=== PATIENT | male | born 1985 | race Caucasian/White ===

== ENCOUNTER 2017-12-06 20:44 | Emergency (ER) | payer SELFPAY ==
[~2017-12-06] VITALS: Ht 170.2 cm; Wt 68.0 kg
--- NOTE | 2017-12-06 21:57 | Diagnostic Imaging Report ---
EXAMINATION: CHEST SINGLE (PORTABLE) INDICATION: Chest pain COMPARISON: None FINDINGS: TUBES and LINES: None. LUNGS: Lungs are well inflated. Linear hyperdensity at the most medial aspect of the right apex is nonspecific and may represent an area of scarring versus overlying artifact There is no evidence of pneumonia or pulmonary edema. PLEURA: No pleural effusion or pneumothorax. HEART AND MEDIASTINUM: The cardiomediastinal silhouette is unremarkable. BONES AND SOFT TISSUES: No acute osseous lesion. Soft tissues are unremarkable. UPPER ABDOMEN: No free air under the diaphragm. IMPRESSION: No acute thoracic abnormality. Signed by: Dr. Azeem Leigh M.D. on 12/06/2017 9:53 PM
--- OUTSIDE RECORDS SUMMARY | 2017-12-17 11:13 | XMS REPORT | Clinical Summary ---
Author Author [facility] Address Unknown Phone Unavailable Care Team Providers Care Health Policy Nurse Name Role Phone Mike Rodriges MD PCP Allergies No Known Allergies Current Medications Prescription Sig. Disp. Refills Start End Date Status Date diazePAM (VALIUM) 5 MG Take 1 tablet (5 mg 14 tablet 0 03/29/19 04/05/19 tablet total) by mouth 2 (two) 18 18 times a day for 7 days. traMADol (ULTRAM) 50 mg Take 1 tablet (50 mg 12 tablet 0 03/29/19 04/03/19 tablet total) by mouth every 6 18 18 (six) hours as needed for moderate pain for up to 5 days. Active Problems Not on file Encounters Date Type Specialty Care Team Description 03/29/2017 Emergency Emergency Medicine MustafaEvens eller MD Anxiety (Primary Dx); Atypical chest pain after 12/05/2016 Social History Tobacco Use Types Packs/Day Years Used Date Former Smoker Smokeless Tobacco: Never Used Alcohol Use Drinks/Week oz/Week Comments No Sex Assigned at Date Recorded Not on file Last Filed Vital Signs Vital Sign Reading Time Taken Blood Pressure 115/74 03/29/2017 1:25 PM [facility] Pulse 68 03/29/2017 1:25 PM [employer] Temperature 36.4 C (97.5 F) 03/29/2017 1:25 PM [employer] Respiratory Rate 16 03/29/2017 1:25 PM [employer] Oxygen Saturation 97% 03/29/2017 12:14 PM [employer] Inhaled Oxygen - - Concentration Weight 74.8 kg (165 lb) 03/29/2017 11:00 AM [employer] Height 154.9 cm (5' 1") 03/29/2017 12:14 PM [employer] Body Mass Index 31.18 03/29/2017 11:00 AM [employer] Plan of Treatment Health Maintenance Due Date Last Done Comments INFLUENZA VACCINE 10/02/2017 Procedures Procedure Name Priority Date/Time Associated Diagnosis Comments ZZESTIMATED GFR STAT 03/29/2017 Results for this 11:50 AM [employer] procedure are in the results section. B NATRIURETIC PEPTIDE STAT 03/29/2017 Results for this 11:50 AM [employer] procedure are in the results section. TROPONIN STAT 03/29/2017 Results for this 11:50 AM [employer] procedure are in the results section. COMPREHENSIVE METABOLIC STAT 03/29/2017 Results for this PANEL 11:50 AM [employer] procedure are in the results section. HC COMPLETE BLD COUNT STAT 03/29/2017 Results for this W/AUTO DIFF 11:50 AM [employer] procedure are in the results section. XR CHEST 1 VW PORTABLE STAT 03/29/2017 Results for this 11:37 AM [employer] procedure are in the results section. ECG 12-LEAD STAT 03/29/2017 Results for this 11:15 AM [employer] procedure are in the results section. after 12/05/2016 Results * Estimated GFR (03/29/2017 11:50 AM) GFR Non Af Amer >90 mL/min/1.73 m2 [facility] AND GENOMIC MEDICINE GFR Af Amer >90 mL/min/1.73 m2 [facility] Comment: PATHOLOGY AND Chronic kidney disease: <60 GENOMIC MEDICINE mL/min/1.73m2 Kidney failure: <15 mL/min/1.73m2 The estimated GFR is calculated from the IDMS-traceable Modification of Diet in Renal Disease Equation. The accuracy of the calculation is poor when the creatinine is normal. Calculated values >90 mL/min/1.73m2 are not reported. This equation has not been validated in children (<18 years), women, the elderly (>70 years), or ethnic groups other than Caucasians and Americans. Specimen Plasma specimen Performing Organization Address City/State/Zipcode Phone Number [facility] OF [address] [place] [address] PATHOLOGY AND GENOMIC MEDICINE * Troponin (03/29/2017 11:50 AM) Troponin <0.01 0.00 - 0.60 ng/mL [facility] OF Comment: PATHOLOGY AND 0.11 - 1.49 GENOMIC MEDICINE ng/mlMay indicate increased risk of acute coronary syndrome. >=1.5 ng/ml Consistent with acute myocardial infarction. The diagnostic value of a single normal or non-diagnostic result is questionable.Serial samples at 2-6 hour intervals are required to rule out acute myocardial injury. Specimen Plasma specimen Performing Organization Address City/State/Zipcode Phone Number [facility] [address] [place] [address] PATHOLOGY AND GENOMIC MEDICINE * CBC with platelet and differential (03/29/2017 11:50 AM) WBC 8.9 4.2 - 11.0 k/uL [facility] PATHOLOGY AND GENOMIC MEDICINE RBC 4.78 4.04 - 5.86 m/uL [facility] PATHOLOGY AND GENOMIC MEDICINE HGB 14.7 13.0 - 17.3 g/dL [facility] OF PATHOLOGY AND GENOMIC MEDICINE HCT 41.7 34.0 - 45.0 % [facility] PATHOLOGY AND GENOMIC MEDICINE MCV 87.2 80.0 - 98.0 fL [facility] PATHOLOGY AND GENOMIC MEDICINE MCH 30.8 27.0 - 34.0 pg [facility] PATHOLOGY AND GENOMIC MEDICINE MCHC 35.3 31.5 - 36.5 g/dL [facility] OF PATHOLOGY AND GENOMIC MEDICINE RDW - SD 37.5 37.0 - 51.0 fL [facility] PATHOLOGY AND GENOMIC MEDICINE MPV 10.3 7.4 - 10.4 fL [facility] PATHOLOGY AND GENOMIC MEDICINE Platelet count 213 150 - 400 k/uL [facility] PATHOLOGY AND GENOMIC MEDICINE Nucleated RBC 0.00 /100 WBC [facility] OF PATHOLOGY AND GENOMIC MEDICINE Neutrophils 76.6 (H) 36.0 - 66.0 % [facility] OF PATHOLOGY AND GENOMIC MEDICINE Lymphocytes 17.5 (L) 24.0 - 44.0 % [facility] OF PATHOLOGY AND GENOMIC MEDICINE Monocytes 4.6 0.0 - 6.0 % [facility] OF PATHOLOGY AND GENOMIC MEDICINE Eosinophils 0.7 0.0 - 6.0 % [facility] OF PATHOLOGY AND GENOMIC MEDICINE Basophils 0.4 0.0 - 1.2 % [facility] OF PATHOLOGY AND GENOMIC MEDICINE Immature granulocytes 0.2 0.0 - 1.0 % [facility] OF PATHOLOGY AND GENOMIC MEDICINE Specimen Blood Performing Organization Address City/State/Zipcode Phone Number [facility] [address] [place] [address] PATHOLOGY AND GENOMIC MEDICINE * B natriuretic peptide (03/29/2017 11:50 AM) BNP <5 0 - 100 pg/mL [facility] OF PATHOLOGY AND GENOMIC MEDICINE Specimen Blood Performing Organization Address City/[facility]/Zipcode Phone Number [place] [phone] [place] [address] PATHOLOGY AND GENOMIC MEDICINE * Comprehensive metabolic panel (03/29/2017 11:50 AM) Sodium 137 135 - 150 mEq/L [facility] OF PATHOLOGY AND GENOMIC MEDICINE Potassium 3.8 3.5 - 5.0 mEq/L [facility] OF PATHOLOGY AND GENOMIC MEDICINE Chloride 103 100 - 109 mEq/L [facility]OLOGY AND GENOMIC MEDICINE CO2 27 24 - 32 mmol/L [facility] OF PATHOLOGY AND GENOMIC MEDICINE Anion gap 7 7 - 15 mEq/L [facility] Comment: PATHOLOGY AND Starting from June [employer] MEDICINE , anion gap calculation no longer incorporates potassium. Please note the change. BUN 18 7 - 18 mg/dL [facility] PATHOLOGY AND GENOMIC MEDICINE Creatinine 0.9 0.8 - 1.5 mg/dL [facility] OF PATHOLOGY AND GENOMIC MEDICINE Glucose 108 (H) 65 - 100 mg/dL [facility] OF PATHOLOGY AND GENOMIC MEDICINE Calcium 9.0 8.6 - 10.7 mg/dL [facility] OF PATHOLOGY AND GENOMIC MEDICINE Protein 7.6 6.3 - 8.2 g/dL [facility] OF PATHOLOGY AND GENOMIC MEDICINE Albumin 3.9 3.2 - 5.0 g/dL [facility] OF PATHOLOGY AND GENOMIC MEDICINE A/G ratio 1.1 0.7 - 3.8 [facility] PATHOLOGY AND GENOMIC MEDICINE Alkaline phosphatase 88 30 - 120 U/L [facility] OF PATHOLOGY AND GENOMIC MEDICINE AST 5 (L) 15 - 37 U/L [facility] PATHOLOGY AND GENOMIC MEDICINE ALT 25 (L) 30 - 65 U/L [facility] OF PATHOLOGY AND GENOMIC MEDICINE Total bilirubin 0.6 0.2 - 1.2 mg/dL [facility] OF PATHOLOGY AND GENOMIC MEDICINE Specimen Plasma specimen Performing Organization Address City/State/Zipcode Phone Number [facility] [place] [address] PATHOLOGY AND [employer] MEDICINE * XR Chest 1 Vw Portable (03/29/2017 11:37 AM) Narrative Performed At EXAMINATION:XR CHEST 1 VW PORTABLE RADIANT CLINICAL HISTORY: SHORTNESS OF BREATH COMPARISON:None. FINDINGS: One view of the chest demonstratesnormal cardiomediastinal silhouette. Pulmonary vasculature is within normal limits. Both lungs are clear. No pleural disease is identified. Regional osseous structures is unremarkable. IMPRESSION: No radiographic evidence of acute cardiopulmonary process or active disease of the chest. [facility] [id number] Procedure Note Hm Interface, Radiology Results Incoming - 03/29/2017 11:44 AM [employer] EXAMINATION: XR CHEST 1 VW PORTABLE CLINICAL HISTORY: SHORTNESS OF BREATH COMPARISON: None. FINDINGS: One view of the chest demonstrates normal cardiomediastinal silhouette. Pulmonary vasculature is within normal limits. Both lungs are clear. No pleural disease is identified. Regional osseous structures is unremarkable. IMPRESSION: No radiographic evidence of acute cardiopulmonary process or active disease of the chest. [facility] [id number] Performing Organization Address [facility] Phone Number [facility] [address] [place] [address] * ECG 12 lead (03/29/2017 11:15 AM) Ventricular rate 64 [facility] Atrial rate 64 [facility] OR interval 116 [facility] QRSD interval 96 [facility] QT interval 416 [facility] QTC interval 429 [facility] P axis 1 24 [facility] QRS axis 1 76 [facility] T wave axis 48 [facility] EKG impression Normal sinus rhythm-Normal [facility] MUSE ECG-No previous ECGs available- Performing Organization Address [facility] Phone Number [facility] [address] [place] [address] after 12/05/2016
== END 2017-12-06 21:54 | disposition home or self-care (01) ==
LOC: ER 20:44
DX: R07.89 Other chest pain (principal); I10 Essential (primary) hypertension
CPT/HCPCS: 71045; 93005; 99283

== ENCOUNTER 2018-12-29 23:03 | Inpatient (IN) | payer OTHER ==
[~2018-12-29] VITALS: Ht 170.2 cm; Wt 68.0 kg
--- OUTSIDE RECORDS SUMMARY | 2018-12-29 23:05 | XMS REPORT ---
Author Author [facility] Address Unknown Phone Unavailable Care Team Providers Care Genetic Counsellor Name Role Phone MAURI Kelsey ABELARDO Unavailable Unavailable Payers Payer Name Policy Type Policy Number Effective Date Expiration Date Problems This patient has no known problems. Allergies, Adverse Reactions, Alerts Allergy Name Allergy Type Status Severity Reaction(s) Onset Date Inactive Date Treating Clinician Comments No Known Allergies DA Active U 2016-09-02 00:00:00 Medications This patient has no known medications. Results Test Description Test Time Test Comments Text Results Atomic Results Result Comments - CT CHEST W/O CONTRAST 2018-07-24 09:29:00 Name: GONZALO YATES [facility] : 1985 Age/S: 32 / M [address] [facility] Unit [facility]: [id number] Loc: [place] [address] Phys: Checo Connolly MD Acct: [id number] Dis Date: Status: REG CLI PHONE #: [phone] Exam Date: 07/24/2018 0859 FAX #: [phone] Reason: PAIN EXAMS: CPT CODE: [id number] CT CHEST W/O CONTRAST [address] TECHNIQUE: - CT CHEST W/O CONTRAST . This exam was performed using one or more of the following dose reduction techniques: Automated exposure control, adjustment of the mA and/ or kV according to patient size or use of iterative reconstruction technique. COMPARISON: CT chest 09/02/2018 HISTORY: 32 years Male PAIN FINDINGS: Lungs: Coarse parenchymal disease with surgical changes medial right upper lung field. These findings are of marked decreased prominence since the previous CT scan 09/02/2016. Mediastinum and Rocio: No significant lymphadenopathy. No mediastinal or hilar mass. Pleura: No calcifications, effusion, thickening, or pneumothorax. Cardiovascular: Age appropriate. No significant abnormalities. Visualized Upper Abdomen: No significant findings. Chest wall and bony structures: No abnormalities. IMPRESSION: Coarse parenchymal disease with surgical changes medial right upper lung field. These findings are of marked decreased prominence since the previous CT scan 09/02/2016. at 0929 Reported and signed by: Pola Jarrell M.D. PAGE 1 Signed Report (CONTINUED) Name: GONZALO YATES [facility] : 1985 Age/S: 32 / M [address] [facility] Unit #: [id number] Loc: [place] [address] Phys: Checo Connolly MD Acct: [id number] Dis Date: Status: REG CLI PHONE #: [phone] Exam Date: 07/24/2018 0859 FAX #: [phone] Reason: PAIN EXAMS: CPT CODE: [id number] CT CHEST W/O CONTRAST [address]35[address] <Continued> CC: Mike Rodriges; Checo Connolly MD Technologist:Dwain Silveira RT(R),(MR),(CT) CTDI: DLP: Trnscb Date/Time: 07/24/2018 (928) [email or web address] Orig Print D/T: S: 07/24/2018 (0932) PAGE 2 Signed Report CHEST SINGLE (PORTABLE) 2017-12-06 21:52:00 [facility] [address] [place] [address] Patient Name: GONZALO YATES MR #: [id number] : 1985 Age/Sex: 32/M Req #: [id number] Adm Physician: Ordered by: ABELARDO DOTSON MD Report #: [id number] Location: ER Room/Bed: Procedure: [id number] DX/CHEST SINGLE (PORTABLE) Exam Date: 12/06/17 Exam Time: 2114 REPORT STATUS: Signed EXAMINATION: CHEST SINGLE (PORTABLE) INDICATION: Chest pain COMPARISON: None FINDINGS: TUBES and LINES: None. LUNGS: Lungs are well inflated. Linear hyperdensity at the most medial aspect of the right apex is nonspecific and may represent an area of scarring versus overlying artifact There is no evidence of pneumonia or pulmonary edema. PLEURA: No pleural effusion or pneumothorax. HEART AND MEDIASTINUM: The cardiomediastinal silhouette is unremarkable. BONES AND SOFT TISSUES: No acute osseous lesion. Soft tissues are unremarkable. UPPER ABDOMEN: No free air under the diaphragm. IMPRESSION: No acute thoracic abnormality. Signed by: Dr. Azeem Leigh M.D. on 12/06/2017 9:53 PM Dictated By: AZEEM JENNINGS MD 52 Transcribed By: IZABELA on 12/06/172152 COPY TO: ABELARDO DOTSON MD
[2018-12-29] MEDS ORDERED: ONDANSETRON HCL INJ 2MG/ML 2ML 2 MG/ML VIAL IV STA (23:55)
[2018-12-30] MEDS ORDERED: DICYCLOMINE HCL 20 MG/2 ML VIAL IM ONE
[2018-12-30] MEDS ORDERED: MORPHINE SULFATE INJ 4 MG/ML INJ 1ML IV ONE
[2018-12-30 00:09] LABS: BASOPHILS # (AUTO) 0.1 (0.0-0.1); BASOPHILS % 0.7 % (0.0-1.0); EOSINOPHILS # (AUTO) 0.2 (0.0-0.4); HEMATOCRIT 41.5 % (38.2-49.6); HEMOGLOBIN 14.4 g/dL (14.0-18.0); LYMPHOCYTES # (AUTO) 2.8 (1.0-3.2); LYMPHOCYTES % 31.5 % (18.0-39.1); MEAN CORPUSCULAR HEMOGLOBIN 31.6 pg (28-32); MEAN CORPUSCULAR HGB CONC 34.7 g/dL (31-35); MONOCYTES # (AUTO) 0.5 (0.2-0.8); MONOCYTES % 5.9 % (4.4-11.3); NEUTROPHILS # (AUTO) 5.3 (2.1-6.9); NEUTROPHILS % 59.7 % (38.7-80.0); PLATELET COUNT 164 x10e3/uL (140-360); RED BLOOD COUNT 4.56 x10e6/uL (4.3-5.7); RED CELL DISTRIBUTION WIDTH 11.8 % (11.7-14.4)
[2018-12-30 00:29] LABS: ALANINE AMINOTRANSFERASE 31 IU/L (0-55); ALBUMIN 3.8 g/dL (3.5-5.0); ALBUMIN/GLOBULIN RATIO 1.4 (0.8-2.0); ALKALINE PHOSPHATASE 69 IU/L (40-150); ANION GAP 13.7 mmol/L (8-16); BLOOD UREA NITROGEN 18 mg/dL (7-26); BUN/CREATININE RATIO 21 (6-25); CALCIUM 9.5 mg/dL (8.4-10.2); CARBON DIOXIDE 24 mmol/L (22-29); CHLORIDE 105 mmol/L (98-107); CREATININE, SERUM 0.84 mg/dL (0.72-1.25); EST GLOMERULAR FILTRATION RATE > 60 ML/MIN (60-); GLUCOSE 132 mg/dL (74-118); POTASSIUM 3.7 mmol/L (3.5-5.1); SODIUM 139 mmol/L (136-145)
[2018-12-30 00:32] LABS: BILIRUBIN,URINE NEGATIVE (NEGATIVE); CLARITY,URINE CLEAR (CLEAR); COLOR,URINE YELLOW (YELLOW); KETONES,URINE NEGATIVE (NEGATIVE); LEUKOCYTE ESTERASE ,URINE NEGATIVE (NEGATIVE); NITRITE,URINE NEGATIVE (NEGATIVE); PROTEIN,URINE DIPSTICK NEGATIVE (NEGATIVE); URINE UROBILINOGEN 0.2 mg/dL (0.2 - 1)
[2018-12-30 01:07] LABS: BACTERIA,URINE RARE /HPF; EPITHELIAL CELLS,URINE FEW /LPF; RBC,URINE 0-5 /HPF (0-5); WBC,URINE (MAN) 0-5 /HPF (0-5)
[2018-12-30 01:13] LABS: AMYLASE 153 U/L (25-125); LIPASE 362 U/L (8-78)
--- NOTE | 2018-12-30 01:26 | Diagnostic Imaging Report ---
EXAM: Right Upper Quadrant Ultrasound with Doppler INDICATION: Right upper quadrant pain COMPARISON: None. TECHNIQUE: Transverse and longitudinal images of the right upper abdomen were obtained. Grayscale, color Doppler and spectral waveform analysis of the hepatic vasculature and splenic vein were performed. FINDINGS: Liver: Size: 15.3 cm in the right midclavicular line, normal Appearance: Normal echogenicity, smooth contour Mass: No focal masses Gallbladder: Stones/Sludge: None Wall: 0.2 cm Appearance: No pericholecystic fluid or hydrops. Sonographic Jones's Sign: Negative Bile Ducts: Intrahepatic Ducts: No dilatation Extrahepatic Ducts: Common bile duct measures 0.3 cm, no dilatation Pancreas: Obscured by bowel gas. Right Kidney: Size: 9.7 cm Echogenicity: Normal Parenchymal thickness: Normal Collecting system: No hydronephrosis Stones: None Cyst/Mass: None Vessels: Main Portal Vein: Diameter: 1.1 cm, normal. Normal flow direction. Aorta: Visualized portions are normal Inferior Vena Cava: Visualized portions are normal Free Fluid: No ascites or pleural effusion IMPRESSION: Normal right upper quadrant ultrasound . Signed by: Jose De Jesus Cody DO on 12/30/2018 1:23 AM
[2018-12-30] MEDS: SODIUM CHLORIDE 0.9% 1000ML 1,000 ML IV SCH ×4 (02:17→20:21)
[2018-12-30] MEDS ORDERED: SODIUM CHLORIDE 0.9% 1000ML 1,000 ML IV STA (04:06)
[2018-12-30] MEDS ORDERED: SODIUM CHLORIDE 0.9% 1000ML 1,000 ML IV ONE (04:15)
[2018-12-30] MEDS: ONDANSETRON HCL INJ 2MG/ML 2ML 2 MG/ML VIAL IV PRN ×5 (04:40→22:09)
[2018-12-30] MEDS: HYDROMORPHONE 1MG/1ML INJ IV PRN ×5 (04:40→22:09)
[2018-12-30] MEDS ORDERED: DIAZEPAM5 MG PO (04:55)
[2018-12-30] MEDS ORDERED: BYSTOLIC10 MG PO (04:55)
[2018-12-30] MEDS ORDERED: HYDROCODONE-IB1 EAC1 PO (04:55)
--- NOTE | 2018-12-30 06:55 | NUR ---
Bedside report received from ANJANA Oden. Pt sitting up on stretcher. RR even and unlabored. NAD noted. Vitals stable. Will continue to monitor.
[2018-12-30 08:16] VITALS: BP 127/79
[2018-12-30] MEDS: PANTOPRAZOLE 40 MG 10ML VIAL IV SCH (08:22)
--- NOTE | 2018-12-30 10:26 | NUR ---
Pt resting comfortably on stretcher. RR even and unlabored. NAD noted. Vitals stable. Pt denies any pain at the present time. Hugh continue to monitor.
--- NOTE | 2018-12-30 11:10 | History and Physical ---
REASON FOR ADMISSION: Pancreatitis. HISTORY OF PRESENT ILLNESS: The patient is a gentleman, who is in usual state health until he started having acute onset of abdominal pain, mostly midepigastric, sharp, radiating to his back. When he came into the emergency room, it was noticed on laboratory data to have evidence of pancreatitis with unremarkable ultrasound. PAST MEDICAL HISTORY: Significant for pancreatitis 3 years ago. MEDICATIONS: None. SOCIAL HISTORY: Nonsmoker and nondrinker. FAMILY HISTORY: Noncontributory. PHYSICAL EXAMINATION: VITAL SIGNS: Temperature is 98.6, blood pressure 102/66, pulse 84 sinus, and saturations 100% on room air. GENERAL: He is no apparent distress, lying in bed. NECK: Supple. CARDIOVASCULAR: Regular rate and rhythm. LUNGS: Clear to auscultation bilaterally. ABDOMEN: Soft. He is tender in the midepigastric area, but no peritoneal signs. EXTREMITIES: No clubbing or cyanosis. NEUROLOGIC: Nonfocal. ASSESSMENT/PLAN: 1. Pancreatitis. Continue with n.p.o. status, IV fluids as well as pain control. 2. Abdominal pain. Continue with pain control. 3. Elevated sugars. We will continue to monitor. 4. Hypotension. The patient appears to be asymptomatic, but the patient responded to an IV fluid bolus. Please see hospital chart for full details. MD ROMANA Conrad/JEANMARIE /[id number]
[2018-12-30 13:26] VITALS: BP 133/81
[2018-12-30 13:27] VITALS: BP 133/81
[2018-12-30] MEDS: DIAZEPAM 5 MG TAB PO PRN (13:41)
--- NOTE | 2018-12-30 14:45 | NUR ---
Visit made by the Spiritual Care Department Pastoral Visitor, Nicole Perez. PV provided pastoral presence, prayer, hospitality, and supportive listening. Pastoral Visitor informed pt/family of the scope of Home Agent Services and availability. JOSÉ ANTONIO ORTEGA Program Or Project Administrator Spiritual Care Department O: [phone] Pager: [phone] ([phone] number calling from)
[2018-12-30 15:45] VITALS: BP 114/72
[2018-12-30 19:44] VITALS: BP 114/72
--- NOTE | 2018-12-30 19:58 | NUR ---
RECEIVED PT IN BED AOX3 .DENIES PAIN NOW .PT IS NPO LEFT AC 18 G NS AT 175 CC/HR . RESPIRATIONS ARE EVEN AND UNLABORED NO ACUTE DISTRESS NOTED .CALL LIGHT WITH IN REACH .CONTINUE TO MONITOR
[2018-12-30 20:00] VITALS: BP 124/63
[2018-12-31] VITALS (7 sets, daily range): BP systolic 98–118; BP diastolic 51–67
[2018-12-31] MEDS: SODIUM CHLORIDE 0.9% 1000ML 1,000 ML IV SCH ×5 (03:58→20:30)
--- NOTE | 2018-12-31 04:50 | NUR ---
PT RESTED DURING THE NIGHT .NO ACUTE DISTRESS NOTED.CALL LIGHT WITH IN REACH .CONTINUE TO MONITOR
[2018-12-31 05:31] LABS: BASOPHILS % 0.3 % (0.0-1.0); EOSINOPHILS # (AUTO) 0.1 (0.0-0.4); EOSINOPHILS % 1.6 % (0.0-6.0); HEMATOCRIT 39.8 % (38.2-49.6); HEMOGLOBIN 13.8 g/dL (14.0-18.0); LYMPHOCYTES % 22.5 % (18.0-39.1); MEAN CORPUSCULAR HEMOGLOBIN 31.2 pg (28-32); MEAN CORPUSCULAR HGB CONC 34.7 g/dL (31-35); MEAN CORPUSCULAR VOLUME 89.8 fL (81-99); MONOCYTES # (AUTO) 0.7 (0.2-0.8); MONOCYTES % 7.5 % (4.4-11.3); NEUTROPHILS # (AUTO) 6.1 (2.1-6.9); NEUTROPHILS % 67.9 % (38.7-80.0); PLATELET COUNT 158 x10e3/uL (140-360); RED BLOOD COUNT 4.43 x10e6/uL (4.3-5.7); RED CELL DISTRIBUTION WIDTH 11.6 % (11.7-14.4)
[2018-12-31] MEDS ORDERED: ACETAMINOPHEN 1000 MG/100 ML IV PRN (05:45)
[2018-12-31 05:59] LABS: ALANINE AMINOTRANSFERASE 27 IU/L (0-55); ALBUMIN 3.9 g/dL (3.5-5.0); ALBUMIN/GLOBULIN RATIO 1.6 (0.8-2.0); ALKALINE PHOSPHATASE 51 IU/L (40-150); AMYLASE 57 U/L (25-125); ANION GAP 13.4 mmol/L (8-16); BLOOD UREA NITROGEN 9 mg/dL (7-26); BUN/CREATININE RATIO 11 (6-25); CARBON DIOXIDE 26 mmol/L (22-29); CHLORIDE 102 mmol/L (98-107); CREATININE, SERUM 0.82 mg/dL (0.72-1.25); EST GLOMERULAR FILTRATION RATE > 60 ML/MIN (60-); GLUCOSE 92 mg/dL (74-118); LIPASE 17 U/L (8-78); POTASSIUM 3.4 mmol/L (3.5-5.1); SODIUM 138 mmol/L (136-145)
[2018-12-31 06:13] LABS: CHOL/HDL RATIO 3.4 (3.9-4.7)
--- NOTE | 2018-12-31 06:58 | NUR ---
BED SIDE REPORT GIVEN TO THE ONCOMING NURSE
--- NOTE | 2018-12-31 07:00 | NUR ---
received am report and rounds done. pt is sleeping, no s/s of distress. call light within reach and side rails up.
[2018-12-31] MEDS: HYDROMORPHONE 1MG/1ML INJ IV PRN ×5 (07:59→23:54)
[2018-12-31] MEDS: ONDANSETRON HCL INJ 2MG/ML 2ML 2 MG/ML VIAL IV PRN ×5 (07:59→23:54)
[2018-12-31] MEDS: PANTOPRAZOLE 40 MG 10ML VIAL IV SCH (07:59)
[2018-12-31] MEDS: DIAZEPAM 5 MG TAB PO PRN ×2 (08:01→19:01)
--- NOTE | 2018-12-31 09:39 | Diagnostic Imaging Report ---
INDICATION: Abdominal pain for 2 days. TECHNIQUE: Abdomen MR with MRCP. COMPARISON: Right upper quadrant ultrasound (abdominal ultrasound exam limited) December 29, 2018 FINDINGS: No gallstones or gallbladder wall thickening is demonstrated. There is no biliary ductal dilatation. No paraduodenal fluid or peripancreatic stranding is demonstrated. The pancreas is normal in configuration and signal. There is pancreatic divisum. No pancreatic ductal dilatation or mass. Liver is normal in contour, size, and signal and no liver mass is demonstrated. Spleen, adrenal glands, kidneys, and visualized bowel loops are unremarkable. No upper abdominal lymphadenopathy is demonstrated. There is no pleural effusion. Osseous structures unremarkable. IMPRESSION: No cholelithiasis, cholecystitis, or evidence of pancreatitis. Pancreatic divisum. Signed by: Amor Perkins MD on 12/30/2018 9:54 AM
--- NOTE | 2018-12-31 15:32 | NUR ---
received pt back from pacu. pt is in stable condition, no s/s of distress. started NACL at 100ml/hr per orders and provided the pt with ice water. tech reported bp 97/46 Addendum: 12/31/18 at 1536 by Tasha Friedman RN entered in error
--- NOTE | 2018-12-31 20:00 | NUR ---
Received change of shift report from AM nurse. Walking rounds completed.
--- NOTE | 2018-12-31 23:41 | NUR ---
Received change of shift report from GIOVANNI samson Walking rounds completed. Addendum: 12/31/18 at 3006 by Ivette Centeno RN duplicate
[2019-01-01] VITALS: BP 134/80
[2019-01-01 04:00] VITALS: BP 119/61
--- NOTE | 2019-01-01 04:09 | NUR ---
Patient request meds q 4hours for pain 4-8. Continue monitor and tx as ordered by .
[2019-01-01] MEDS: HYDROMORPHONE 1MG/1ML INJ IV PRN (05:31)
[2019-01-01] MEDS: ONDANSETRON HCL INJ 2MG/ML 2ML 2 MG/ML VIAL IV PRN (05:32)
[2019-01-01 07:20] VITALS: BP 126/62
--- NOTE | 2019-01-01 07:20 | NUR ---
PATIENT IN BED RESTING WITH HEAD OF BED ELEVATED, DENIED PAIN AT THIS TIME. IV FLUID INFUSING ORDERED. BED IN LOWER POSITION, CALL LIGHT AT REACH.
[2019-01-01 07:35] VITALS: BP 126/62
[2019-01-01] MEDS: PANTOPRAZOLE 40 MG 10ML VIAL IV SCH (09:07)
--- NOTE | 2019-01-01 11:05 | NUR ---
PATIENT AMBULATED TO THE RESTROOM AND BACK TO BED . NO COMPLAIN VOICED, CALL LIGHT AT REACH.
[2019-01-01 11:30] VITALS: BP 107/66
--- NOTE | 2019-01-01 12:10 | NUR ---
PATIENT DISCHARGED HOME. DISCHARGE INSTRUCTIONS AND FOLLOW UP GIVEN TO PATIENT, HE VERBALIZED UNDERSTANDING. IV TO LEFT AC REMOVED WITH TIP INTACT. ALL PERSONAL ITEMS TAKEN WITH PATIENT. REFUSED WHEEL CHAIR, BUT WAS ACCOMPANIED TO FRONT LOBBY BY HOSPITAL STAFF IN STABLE CONDITION.
== END 2019-01-01 12:14 | disposition home or self-care (01) | DRG 440 ==
LOC: ER 23:03 → ERHOLD 12-30 02:10 → MED/SURG3 12-30 12:27
PROVIDERS: ADMIT Internal Medicine; ATTEND Internal Medicine
DX: K85.00 Idiopathic acute pancreatitis without necrosis or infection (principal); R73.9 Hyperglycemia, unspecified; I95.9 Hypotension, unspecified; F41.9 Anxiety disorder, unspecified; K21.9 Gastro-esophageal reflux disease without esophagitis
CPT/HCPCS: 36415; 74181; 76705; 80053; 80061; 81001; 82150; 83690; 85025; 96372; 96374; 96376; 99284; J0500; J1170; J2270; J2405; J7030

== ENCOUNTER 2019-07-07 19:22 | Emergency (ER) | payer OTHER ==
[~2019-07-07] VITALS: Ht 170.2 cm; Wt 68.0 kg
[~2019-07-07 19:22] MED LIST: BYSTOLIC10 MG PO; DIAZEPAM5 MG PO; HYDROCODONE-IB1 EAC1 PO
[2019-07-07] MEDS ORDERED: IBUPROFEN 600 MG TAB PO STA (19:33)
[2019-07-07] MEDS ORDERED: TRAMADOL HCL 50 MG TAB PO ONE (19:45)
--- NOTE | 2019-07-07 20:05 | Diagnostic Imaging Report ---
Left rib multiple views CPT code: 80355 History: Fall, left rib pain Comparison: Chest x-ray 12/06/2017. Findings: Nondisplaced fracture of the left fifth rib, anterolateral aspect. No dislocation identified. Chest PA single view demonstrates no evidence of pleural effusion or pneumothorax. Chain sutures in the apex of the right lung are stable. IMPRESSION: Nondisplaced fracture of the left fifth rib. No evidence of pulmonary or pleural injury. Stable postoperative changes of the right lung. Thank you for your referral. Signed by: Dr. Pedro Luis Will MD on 07/07/2019 8:02 PM
--- NOTE | 2019-07-07 20:13 | NUR ---
RT called for incentive spirometer
[2019-07-07 20:41] VITALS: BP 130/90
== END 2019-07-07 20:40 | disposition home or self-care (01) ==
LOC: ER 19:22
DX: S22.32XA Fracture of one rib, left side, initial encounter for closed fracture (principal); V19.3XXA Pedal cyclist (driver) (passenger) injured in unspecified nontraffic accident, initial encounter; Y93.55 Activity, bike riding; Y92.488 Other paved roadways as the place of occurrence of the external cause; I10 Essential (primary) hypertension; F41.9 Anxiety disorder, unspecified
CPT/HCPCS: 71101; 99283